=== PATIENT | male | born 1960 | race Caucasian/White ===

== ENCOUNTER 2023-12-21 15:55 | Outpatient (RCR) | payer BC, SELFPAY | END 2023-12-21 23:59 | disposition home or self-care (01) | LOC: RST 15:55 | PROVIDERS: ATTENDING PHYSICIAN Radiology Radiation Oncology | DX: C09.9 Malignant neoplasm of tonsil, unspecified (principal); R13.12 Dysphagia, oropharyngeal phase | CPT/HCPCS: 92526; 92610 ==

== ENCOUNTER → 2023-12-24 06:53 | Outpatient (REF) | payer BC, SELFPAY | LOC: RAD 06:53 | PROVIDERS: ATTENDING PHYSICIAN Radiology Radiation Oncology; FAMILY PHYSICIAN Internal Medicine; REFERRING PHYSICIAN Surgery Vascular Surgery | DX: I73.9 Peripheral vascular disease, unspecified (principal); C09.9 Malignant neoplasm of tonsil, unspecified | CPT/HCPCS: 74230; 92611; 93922; 93925 ==

== ENCOUNTER → 2024-01-26 07:46 | Outpatient (REF) | payer BC, SELFPAY | LOC: PET 07:46 | PROVIDERS: ATTENDING PHYSICIAN Internal Medicine Hematology & Oncology | DX: C09.9 Malignant neoplasm of tonsil, unspecified (principal) | CPT/HCPCS: 78815; A9552 ==

== ENCOUNTER → 2024-11-01 08:28 | Outpatient (REF) | payer BC, SELFPAY | LOC: MRI 3T 08:28 | PROVIDERS: ATTENDING PHYSICIAN Specialist; FAMILY PHYSICIAN Family Medicine | DX: R97.20 Elevated prostate specific antigen [PSA] (principal) | CPT/HCPCS: 72197; A9575 ==

== ENCOUNTER 2024-12-20 06:02 | Day surgery (SDC) | payer BC, SELFPAY ==
[2024-12-14 09:15] LABS: Hematocrit 41.4 % (39.0-52.0); Hemoglobin 14.2 g/dL (13.0-18.0); Mean Corp Hgb Conc. 34.3 g/dL (33.0-37.0); Mean Corpuscular Hgb 30.1 pg (27.0-31.0); Mean Corpuscular Volume 87.9 fL (80.0-94.0); Mean Platelet Volume 9.3 fL (7.4-10.4); Platelet Count 229 10^3/uL (130-400); Red Blood Cell Count 4.71 10^6/uL (4.70-6.10); Red Cell Dist. Width 12.5 % (11.5-14.5); White Blood Cell Count 4.6 10^3/uL (4.8-10.8)
[2024-12-14 10:34] LABS: Blood Urea Nitrogen 12 mg/dl (9-20); Calcium 8.8 mg/dl (8.4-10.2); Carbon Dioxide 27 mmol/L (22-30); Chloride 102 mmol/L (98-107); Glucose 103 mg/dl (70-99); Potassium 4.2 mmol/L (3.5-5.1); Sodium 139 mmol/L (135-145); eGFR > 60.00
[2024-12-14 14:18] VITALS: BMI 23.5
--- NOTE | 2024-12-19 14:32 | PTCARENOTE ---
Abn ECG, Dr. Mireles notified, no additional interventions requested.
[2024-12-20] VITALS (14 sets, daily range): BP systolic 117–159; BP diastolic 61–87; BMI 23.5
[2024-12-20] MEDS: NEOMYCIN ENEMA 1 BOTTLE RECTAL (06:35)
[2024-12-20] MEDS: NORMOSOL-R/PLASMALYTE-A 1000 IV ×2 (06:52→17:30)
[2024-12-20] MEDS: SUBLIMAZE 50 MCG IV (11:14)
[2024-12-20] MEDS: TORADOL 15 MG IV ×2 (16:11→21:00)
[2024-12-20] MEDS: COLACE 100 MG PO (16:12)
[2024-12-20] MEDS: POLYSPORIN/DOUBLE ANTIBIOTIC 1 APPLIC TOPICAL (21:00)
[2024-12-21 03:27] VITALS: BP 111/64
[2024-12-21] MEDS: TORADOL 15 MG IV (03:37)
[2024-12-21 06:57] LABS: Hematocrit 36.7 % (39.0-52.0); Hemoglobin 12.4 g/dL (13.0-18.0); Mean Corp Hgb Conc. 33.8 g/dL (33.0-37.0); Mean Corpuscular Hgb 30.1 pg (27.0-31.0); Mean Corpuscular Volume 89.1 fL (80.0-94.0); Mean Platelet Volume 8.9 fL (7.4-10.4); Platelet Count 192 10^3/uL (130-400); Red Blood Cell Count 4.12 10^6/uL (4.70-6.10); Red Cell Dist. Width 12.9 % (11.5-14.5); White Blood Cell Count 7.2 10^3/uL (4.8-10.8)
[2024-12-21 07:28] LABS: Blood Urea Nitrogen 16 mg/dl (9-20); Calcium 8.2 mg/dl (8.4-10.2); Carbon Dioxide 28 mmol/L (22-30); Chloride 101 mmol/L (98-107); Estimated Creatinine Clearance 87 ml/min; Glucose 99 mg/dl (70-99); Sodium 133 mmol/L (135-145); eGFR > 60.00
[2024-12-21 07:43] VITALS: BP 115/70
[2024-12-21] MEDS: POLYSPORIN/DOUBLE ANTIBIOTIC TOPICAL (08:14)
[2024-12-21] MEDS: COLACE PO (08:15)
--- NOTE | 2024-12-21 09:42 | W.PN.URO.CBU ---
Today's Communication / Plan
-
discharge
Assessment / Plan
-
stable
Diagnosis
-
Date of Service: December 21, 2024
-
Patient Diagnosis: prostate cancer s/p robotic radical prostatectomy
Post Op Day: 1
Subjective
-
feels fit for discharge
Objective
-
Vital Signs
Temp Pulse Resp BP Pulse Ox
98.4 F 67 18 115/70 98
12/21/24 07:43 12/21/24 07:43 12/21/24 07:43 12/21/24 07:43 12/21/24 07:43
Intake and Output
12/20/24 12/21/24 12/22/24
06:59 06:59 06:59
Intake Total 690 / 690
Output Total 1900 / 1900
Balance -1210 / -1210
Intake:
Oral fluids 290 / 290
IV fluids (Total) 400 / 400
normsol 400 / 400
Output:
Urine, Johnson 1899 / 1899
Laboratory Results
12/21/24 06:00
12/21/24 06:00
Physical Exam
-
General - well developed, well nourished, no acute distress
Abdomen - 5 dressed sites
Genitalia - Johnson with charles urine
[2024-12-21] MEDS: NORMOSOL-R/PLASMALYTE-A IV (11:03)
[2024-12-21] MEDS: TORADOL IV (11:03)
[2024-12-21] MEDS: COLACE 100 MG PO (11:05)
--- NOTE | 2024-12-21 11:07 | CM ---
Alert awake oriented pt who lives with his in a one story home with 1 step to enter.He is independent in driving and all ADLS. wrote for VN at home with parameters. Pt requested EPTER Martin notified and gave parameters for VN .Pt home
with Johnson. to drive him home.
Uses walker
VN [place] No snf
Pharmacy [facility]
PCP DR Sheffield
PLAN Home with Johnson and PETER .
--- NOTE | 2024-12-21 11:26 | VNURNOTE ---
Home Health Liaison met with patient and spouse at bedside to discuss [facility] nurse/therapy, visits, schedule and homebound status. Patient and spouse familiar w/ VN services, has had us in the past. Explained homebound parameters with spouse and
patient. Patient initially thought he'd return to work next week but will hold off. Patient is agreeable to [facility] and understands that visits at home will be 2-3 x per week to assess and teach medical management, cervantes care. [facility] brochure provided
with contact information. Patient is aware that [facility] will contact them for start of care in 1-2 days after discharge from .
[facility] referral completed in [facility] Port.
== END 2024-12-21 11:59 | disposition home or self-care (01) ==
LOC: SDS 06:02
PROVIDERS: ATTENDING PHYSICIAN Specialist; FAMILY PHYSICIAN Family Medicine
DX: C61 Malignant neoplasm of prostate (principal)
CPT/HCPCS: 55866; 38571; 88305; 88307; 88309; 36415; 80048; 85027; 86850; 86900; 86901; 93005

== ENCOUNTER 2025-02-12 06:27 | Outpatient (RCR) | payer BC, SELFPAY | END 2025-02-12 23:59 | disposition home or self-care (01) | LOC: RPT 06:27 | PROVIDERS: ATTENDING PHYSICIAN Specialist; FAMILY PHYSICIAN Family Medicine | DX: C61 Malignant neoplasm of prostate (principal); M62.89 Other specified disorders of muscle; N39.3 Stress incontinence (female) (male); Z73.6 Limitation of activities due to disability | CPT/HCPCS: 97162; 97530 ==